=== PATIENT | female | born 1970 | race Asian ===

== ENCOUNTER 2019-03-29 18:48 | Emergency (ER) | payer OTHER ==
[2019-03-29] MEDS ORDERED: SUMAtriptan 6 MG/0.5 ML VIAL SUBQ STA (21:29)
--- NOTE | 2019-03-29 21:30 | ED Physician Documentation ---
PD HPI FOCAL NEURO - Stated complaint Stated Complaint: HEADACHE - Chief complaint Chief Complaint: Neuro - History obtained from History obtained from: Patient - History of Present Illness Timing - onset: Other (48-year-old woman with history of migraines. Usually menses related and usually resolve with Excedrin or Aleve. She had an on and off waxing and waning occipital headache for the last 6 days that is somewhat atypical for her migraines. It is not associated with light sensitivity or nausea. She is tried both Excedrin and Aleve without relief. There is no associated fever or neck stiffness but she does have some posterior neck pain.) Review of Systems Constitutional: denies: Fever, Chills Throat: denies: Dental pain / toothache, Sore throat Cardiac: denies: Chest pain / pressure, Palpitations Respiratory: denies: Dyspnea, Cough PD PAST MEDICAL HISTORY - Past Medical History Past Medical History: No Cardiovascular: None Respiratory: None Neuro: None Endocrine/Autoimmune: None GI: None PROFESSOR OF BIOCHEMISTRY: None : None HEENT: None Psych: None Musculoskeletal: None Derm: None - Past Surgical History Past Surgical History: No - Present Medications Home Medications: Ambulatory Orders Medication Instructions Recorded Confirmed Meloxicam [Mobic] 7.5 mg PO BID PRN #20 tablet 03/29/19 - Allergies Allergies/Adverse Reactions: Allergies Allergy/AdvReac Type Severity Reaction Status Date / Time acetaminophen [From Tylenol] AdvReac Anxiety Verified 03/29/19 18:56 - Social History Does the pt smoke?: No Smoking Status: Never smoker Does the pt drink ETOH?: No Does the pt have substance abuse?: No - Immunizations Immunizations are current?: No - POLST Patient has POLST: No PD ED PE NORMAL - Vitals Vital signs reviewed: Yes - General General: Alert and oriented X 3, No acute distress - HEENT HEENT: PERRL, EOMI - Neck Neck: Supple, no meningeal sign, No bony TTP - Cardiac Cardiac: RRR, No murmur - Respiratory Respiratory: No respiratory distress, Clear bilaterally - Abdomen Abdomen: Soft, Non tender - Back Back: No CVA TTP, No spinal TTP - Derm Derm: Normal color, Warm and dry - Extremities Extremities: No edema, No calf tenderness / cord - Neuro Neuro: Alert and oriented X 3, Normal speech Results - Vitals Vitals: Vital Signs - 24 hr 03/29/19 03/29/19 18:53 22:00 Temperature 36.9 C Heart Rate 104 H 95 Respiratory 16 16 Rate Blood Pressure 165/81 H 137/82 H O2 Saturation 97 100 Oxygen O2 Source Room air PD MEDICAL DECISION MAKING - ED course ED course: 48-year-old woman with history of migraines presents with a headache that is atypical for her. However there is nothing to suggest meningitis, although she has neck pain there is no neck stiffness or fever. And no sudden onset to suggest subarachnoid hemorrhage. Mass lesion was screened for with CT which was negative. She really had no relief with Imitrex but had excellent relief with Toradol. Departure - Departure Disposition: 01 Home, Self Care Clinical Impression: Headache Qualifiers: Headache type: unspecified Headache chronicity pattern: acute headache Intractability: not intractable Qualified Code(s): R51 - Headache Condition: Good Record reviewed to determine appropriate education?: Yes Instructions: ED Cephalgia Unspecified Prescriptions: Meloxicam [Mobic] 7.5 mg PO BID PRN #20 tablet PRN Reason: Pain Comments: Your CAT scan was negative which is reassuring. Please return immediately for new worsening symptoms especially fever or neck stiffness. Follow-up with your doctor, next available appointment.
--- NOTE | 2019-03-29 21:58 | CT Report ---
Reason: headache Procedure Date: 03/29/2019 Accession Number: [id number] / [id number] Procedure: CT - HEAD WO CPT Code: FULL RESULT: EXAM: CT HEAD EXAM DATE: 03/29/2019 09:47 PM. CLINICAL HISTORY: Headache. COMPARISON: None. TECHNIQUE: Multiaxial CT images were obtained from the foramen magnum to the vertex. Reformats: Sagittal and coronal. IV contrast: None. In accordance with CT protocol optimization, one or more of the following dose reduction techniques were utilized for this exam: automated exposure control, adjustment of mA and/or KV based on patient size, or use of iterative reconstructive technique. FINDINGS: Parenchyma: No intraparenchymal hemorrhage. No evidence of mass, midline shift or CT findings of acute territorial infarction. Ruby-white differentiation is distinct. Extraaxial Spaces: No subdural or epidural collections identified. Ventricles: No hydrocephalus Sinuses: Imaged paranasal sinuses, orbits, and mastoids show no significant abnormality. Bones: No evidence of acute fracture or calvarial defect. Other: None. IMPRESSION: No acute intracranial abnormalities. RADIA
[2019-03-29] MEDS ORDERED: KETOROLAC 30 MG/ML VIAL IM STA (22:07)
[2019-03-29] MEDS ORDERED: CHERRY SYRUP 10 ML UDC PO ONE (22:07)
[2019-03-29] MEDS ORDERED: DEXAMETHASONE 10 MG/ML VIAL PO STA (22:07)
[2019-03-29 22:36] VITALS: BP 123/80
== END 2019-03-29 22:38 | disposition home or self-care (01) ==
LOC: ED 18:48
DX: R51 Headache (principal); M54.2 Cervicalgia; Z86.69 Personal history of other diseases of the nervous system and sense organs
CPT/HCPCS: 70450; 96372; 99283; 99284; A9270

== ENCOUNTER 2019-04-07 09:37 | Emergency (ER) | payer OTHER ==
[2019-04-07] MEDS ORDERED: KETOROLAC 60 MG/2 ML VIAL IM STA (10:08)
[2019-04-07] MEDS ORDERED: CYCLOBENZAPRINE 10 MG TABLET PO STA (10:08)
--- NOTE | 2019-04-07 10:14 | ED Physician Documentation ---
PD HPI HEADACHE - Stated complaint Stated Complaint: WELSH - Chief complaint Chief Complaint: Neuro - History obtained from History obtained from: Patient, Family - History of Present Illness Timing - onset: How many weeks ago (1) Timing - duration: Weeks (1) Timing - details: Gradual onset, Waxing and waning Pain level max: 7 Pain level now: 6 Location: Other (neck) Quality: No: Thunderclap, Throbbing, Aching, Stabbing, Tightness, Like head is exploding Associated symptoms: No: Fever, Nausea, Vomiting, Weakness, Numbness, Syncope, Seizure, Eye pain, Vision changes Improved by: Rest. No: Dark room Worsened by: Moving. No: Light, Noise Similar symptoms before: Diagnosis (seen here recently for same. 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 : None HEENT: None Psych: None Musculoskeletal: None Derm: None - Past Surgical History Past Surgical History: No - Present Medications Home Medications: Ambulatory Orders Medication Instructions Recorded Confirmed Meloxicam [Mobic] 7.5 mg PO BID PRN #20 tablet 03/29/19 Cyclobenzaprine [Flexeril] 10 mg PO TID PRN #20 tablet 04/07/19 - Allergies Allergies/Adverse Reactions: Allergies Allergy/AdvReac Type Severity Reaction Status Date / Time acetaminophen [From Tylenol] AdvReac Anxiety Verified 03/29/19 18:56 - Social History Does the pt smoke?: No Smoking Status: Never smoker Does the pt drink ETOH?: No Does the pt have substance abuse?: No - Immunizations Immunizations are current?: No - POLST Patient has POLST: No PD ED PE NORMAL - Vitals Vital signs reviewed: Yes - General General: Alert and oriented X 3, No acute distress, Well developed/nourished - HEENT HEENT: Atraumatic, PERRL, EOMI, Ears normal, Moist mucous membranes, Pharynx benign - Neck Neck: Supple, no meningeal sign, No bony TTP, Other (neck spasm B. Pain in all directions, but FROM present. ) - Cardiac Cardiac: RRR, Strong equal pulses - Respiratory Respiratory: No respiratory distress, Clear bilaterally - Abdomen Abdomen: Soft, Non tender, Non distended - Back Back: No spinal TTP - Derm Derm: Warm and dry - Extremities Extremities: No edema - Neuro Neuro: Alert and oriented X 3, conference concierge 2-12 intact, No motor deficit, No sensory deficit, Normal speech Eye Opening: Spontaneous Motor: Obeys Commands Verbal: Oriented GCS Score: 15 - Psych Psych: Normal mood, Normal affect - Free text exam Free text exam: states started after sleeping on a couch Results - Vitals Vitals: Vital Signs - 24 hr 04/07/19 04/07/19 09:51 11:19 Temperature 36.5 C Heart Rate 116 H 92 Respiratory 18 18 Rate Blood Pressure 141/81 H 136/84 H O2 Saturation 99 99 Oxygen O2 Source Room air PD MEDICAL DECISION MAKING - ED course Complexity details: reviewed old records, re-evaluated patient, considered differential, d/w patient, d/w family ED course: 48-year-old female with what appears to be neck spasm. Given Toradol and Flexeril. Pain greatly improved. Headache resolved. Will trial on Flexeril for home. No evidence of meningitis, subarachnoid hemorrhage, aneurysm, tumor. Negative head CT a week ago. Patient counseled regarding signs and symptoms for which I believe and urgent re-evaluation would be necessary. Patient with good understanding of and agreement to plan and is comfortable going home at this time This document was made in part using voice recognition software. While efforts are made to proofread this document, sound alike and grammatical errors may occur. Departure - Departure Disposition: 01 Home, Self Care Clinical Impression: Neck muscle spasm Condition: Good Instructions: ED Spasm Neck No Injury Follow-Up: Chago Valdivia ARNP [Primary Care Provider] - Within 1 week Prescriptions: Cyclobenzaprine [Flexeril] 10 mg PO TID PRN #20 tablet PRN Reason: Spasms Comments: Return if you worsen. Follow-up with your doctor for further care. Do not drive or operate heavy machinery while taking the Flexeril. Discharge Date/Time: 04/07/19 11:20
[2019-04-07 11:20] VITALS: BP 136/84
== END 2019-04-07 11:20 | disposition home or self-care (01) ==
LOC: ED 09:37
DX: M62.830 Muscle spasm of back (principal); M54.2 Cervicalgia; R51 Headache
CPT/HCPCS: 96372; 99283; 99284; A9270